=== PATIENT | female | born 1960 | race Caucasian/White ===

== ENCOUNTER 2022-01-05 10:53 | Outpatient (CLI) | payer OTHER, SELFPAY ==
--- OUTSIDE RECORDS SUMMARY | 2022-01-05 11:06 | XMS_ITS ---
:1960 Author Care Team Providers Name Role Phone TONA MOREIRA Referring Provider [phone] Allergies Code Code System Name Reaction Severity Status Onset 693730 RxNorm Mold ? ? Active ? Medications No Medications Reported Problems Name Status Onset Date Source ? Bilateral Tinnitus Active 08/29/2018 ? 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 Degenerative Arthritis of Temporomandibular Joint Active 08/29/2018 ? Myofascial Pain Active 08/29/2018 ? Procedures Date Name Performed by ? ? ENT/Sinus Surgery Information not avai lable ? [place] Yarn Examiner Surgery Information not avai lable ? Tonsillectomy Information not avai lable ? [place] Teeth Extraction Information not available Results Lab Results Date Name Specimen Result Interpretation Description Value Range Status Address ? ? Oral Appliance ? Type of mandibular ? ? [place]: [address]* Appliance stabilization [address] appliance [facility] , [place] Past Encounters None recorded. Social History Tobacco Smoking Status Never Smoker Vaccine List Vaccine Type influenza, seasonal, injectable 12/20/2017 Plan of Care Reminders Provider Appointments None recorded. ? ? Lab None recorded. ? ? Referral None recorded. ? ? Procedures None recorded. ? ? Surgeries None recorded. ? ? Imaging None recorded. ? ? Vitals 10/11/2018 11:00AM FOLLOW UP 30 Height Weight BMI Blood Pressure 5 ft 4 in 148 lbs 25.4 kg/m2 119/71 mm[Hg] 09/06/2018 03:30PM SPLINT INSERT Height 5 ft 4 in 08/22/2018 09:00AM NEW PATIENT 60 Height Weight BMI Blood Pressure 5 ft 4 in 148 lbs 25.4 kg/m2 98/64 mm[Hg]
--- OUTSIDE RECORDS SUMMARY | 2022-01-05 11:06 | XMS_ITS | Clinical Summary ---
:1960 Author Organization [employer] [facility] [place] [address] Care Team Providers Name Role Phone [facility] Primary Care Provider Unavailable Allergies No known active allergies Medications Medication Sig Dispensed Refills Start Date End Date Status IBUPROFEN 200 MG TAB Take 1 to 3 60 0 09/22/2007 Active tablets by mouth every 6 hours as needed for pain fluticasone (50 mcg Inhale 1 [place] 1 Bottle 0 07/08/2015 Active per actuation) nasal into both nostrils solution once daily. (FLONASE)Indications: Chronic cough albuterol HFA Inhale 1-2 Puffs 1 Inhaler 0 07/18/2015 Active (PRO-AIR,VENTOLIN,PROV by mouth every 4 ENTIL) 90 hours if needed mcg/actuation for Shortness Of inhalerIndications: Breath or Cough Wheezing. erythromycin Apply 1 Strip to 3.5 g 0 11/06/2020 Active ophthalmic ointment left eye 3 times 0.5%Indications: daily. Conjunctival abrasion, left, initial encounter Active Problems Problem Noted Date Myopia of both eyes with astigmatism and presbyopia S/P hysterectomy 05/03/2015 Vitamin D deficiency 10/12/2010 Resolved Problems Problem Noted Date Resolved Date Routine adult health maintenance 06/30/2013 014 Overview: Colonoscopy 06/2013 normal repeat in 10 y ears Anemia, unspecified 11/15/2006 05/03/2015 Allergic rhinitis, cause unspecified 06/10/200502/2016 Umbilical hernia without mention of obstruction or gangrene 05/20/2005 05/03/2015 DEPRESSIVE DISORDER, MAJOR RECUR, UNSPECIFIED 10/06/1999 05/03/2015 FATIGUE 10/06/1999 05/03/2015 HEADACHE - NOS 10/06/1999 05/03/2015 Lump or mass in breast 05/03/2015 ANXIETY 05/03/2015 Overview: September 2011: started zoloft. MENORRHAGIA 05/03/2015 Immunizations Name Administration Dates Next Due Influenza, IIV3 (Age >=3 years) 04/01/2012, 08/25/2004, 11/0 06/2002 Influenza, IIV4 12/09/2012 Pneumococcal Poly,23-Valent (Pneumovax) 08/25/2004 Td (Age >=7 Years) 08/25/2004, 09/08/2001 Tdap 11/06/2011 Zoster (Zostavax-ZVL, live) 05/03/2013 Family History Medical History Relation Name Comments Other Father depression Cancer-breast Mother Other Other cataracts, grand parents Relation Name Status Comments Father Mother (Age 62) diagnosed age 59 Other Social History Tobacco Use Types Packs/Day Years Used Date Never Smoker 0 Smokeless Tobacco: Never Used Tobacco Cessation: Counseling Given: Yes Alcohol Use Standard Drinks/Week Comments Yes 4 (1 standard drink = 0.6 oz pure alcoho l) occasional Sex Assigned at Date Recorded Not on file Obstetrics History Para Term AB IAB SAB Ectopic Multiple Living Live Births 4 3 3 0 1 0 1 0 0 3 Date Outcome GA Total Labor/2nd/3rd Weight Sex Delivery Anes PTL Lizet A 1 A5 Name Clin Labor SAB Term Term Term Last Filed Vital Signs Vital Sign Reading Time Taken Comments Blood Pressure 134/85 12/20/2017 9:48 AM CDT Pulse 66 12/20/2017 9:48 AM CDT Temperature 36.7 ??C (98 ??F) 11/26/2015 9:14 AM CDT Respiratory Rate 14 09/22/2007 3:00 PM CDT Oxygen Saturation 98% 07/08/2015 10:29 AM CDT Inhaled Oxygen Concentration - - Weight 64.8 kg (142 lb 14.4 oz) 11/26/2015 9:14 AM CDT Height 160.5 cm (5' 3.19) 07/08/2015 10:29 AM CDT Body Mass Index 25.16 07/08/2015 10:29 AM CDT Plan of Treatment Health Maintenance Due Date Last Done Comments Zoster (shingles) series for age 0406/28/2013 05/03/2013 50+ (2 of 3) Depression screening for age 12+ 05/03/2016 05/03/2015 BMI (ht and wt on same day) for 07/07/2016 07/08/2015, 04/22 age 18+ Mammogram for age 45-75 01/30/2017 01/31/2016, 01/24/2015, 01/15/2014, Additional history exists Lipids for age 45-75 05/03/2020 05/03/2015, 10/17/2010, 08/12/2005, Additional history exists COVID-19 vaccine series (3 - 09/24/2020 07/30/2020, 021 Booster for Pfizer series) Tetanus booster 11/05/2021 11/06/2011, 08/25/2004, 09/08/2001 Influenza for age 50-64 11/20/2021 02/03/2015 (Completed [facility]), 12/09/2012, 04/01/2012, Additional history exists Colonoscopy through age 75 07/01/2023 06/30/2013, 5 Tdap Completed 11/06/2011 Hepatitis C screening for age Completed 05/03/2015 18-79 Results Not on filefrom Last 3 Months Insurance Payer Benefit Plan / Subscriber ID Effective Dates Phone Addre ss Type Group MEDICA MEDICA CHOICE [id number] 2020-[place] [address] [address] [place] [address] Advance Directives Latest Code Status on File Code Status Date Activated Date Inactivated Comments Full Code 09/21/2007 8:02 AM 09/22/2007 11:00 PM Care Teams Sample Paster Relationship Specialty Start Date End Date Rosalind Snider PCP - General 06/19/16
[2022-01-05 22:14] LABS: Chloride* 101 mmol/L (96-114)
[2022-01-05 22:15] LABS: Potassium* 4.4 mmol/L (3.6-5.1); Sodium* 138 mmol/L (135-149)
[2022-01-05 22:17] LABS: Aspartate Amino Transferase* 27 U/L (12-35); Bilirubin Total* 0.6 mg/dL (0.1-1.5); Blood Urea Nitrogen* 16 mg/dL (7-30); Carbon Dioxide* 29 mmol/L (20-32); Cholesterol* 292 mg/dL (90-199); Creatinine* 0.6 mg/dL (0.5-1.5); Estimated Glomerular Filt Rate 103 ml/min; Total Protein* 7.7 g/dL (6.0-8.3)
[2022-01-05 22:18] LABS: Alkaline Phosphatase* 102 U/L (40-150); Glucose* 111 mg/dL (60-115); HDL Cholesterol* 78 mg/dL (>=50); Iron* 134 ug/dL (37-170); LDL Cholesterol Calculated 181 mg/dL (<100); Triglycerides* 167 mg/dL (40-149)
[2022-01-05 22:51] LABS: Alanine Aminotransferase* 24 U/L (4-35)
[2022-01-05 23:03] LABS: Vitamin B12* 496 pg/mL (243-894)
== END 2022-01-05 10:54 | disposition home or self-care (01) ==
PROVIDERS: PCP Physician Assistant Medical; Visit Provider Physician Assistant Medical
DX: Z01.419 Encounter for gynecological examination (general) (routine) without abnormal findings (principal); F41.9 Anxiety disorder, unspecified; R53.83 Other fatigue; Z13.6 Encounter for screening for cardiovascular disorders
CPT/HCPCS: 80053; 80061; 82607; 83540; 84443; 87624; 88175

== ENCOUNTER 2022-01-21 07:57 | Outpatient (CLI) | payer OTHER, SELFPAY ==
--- OUTSIDE RECORDS SUMMARY | 2022-01-21 07:59 | XMS_ITS ---
:1960 Author Care Team Providers Name Role Phone TONA MOREIRA Referring Provider [phone] Allergies Code Code System Name Reaction Severity Status Onset 433723 RxNorm Mold ? ? Active ? Medications No Medications Reported Problems Name Status Onset Date Source ? Bilateral Tinnitus Active 08/29/2018 ? 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 Degenerative Arthritis of Temporomandibular Joint Active 08/29/2018 ? Myofascial Pain Active 08/29/2018 ? Procedures Date Name Performed by ? ? ENT/Sinus Surgery Information not avai lable ? Pre [employer] Teacher Surgery Information not avai lable ? Tonsillectomy Information not avai lable ? [place] Teeth Extraction Information not available Results Lab Results Date Name Specimen Result Interpretation Description Value Range Status Address ? ? Oral Appliance ? Type of mandibular ? ? [place]: [address] Preparation* Appliance stabilization [address] appliance [facility] , [place] Past Encounters None recorded. Social History Tobacco [...]
--- OUTSIDE RECORDS SUMMARY | 2022-01-21 07:59 | XMS_ITS | Clinical Summary ---
:1960 Author Organization [email or web address] [facility] [place] [address] Care Team Providers Name Role Phone [facility] Primary Care Provider Unavailable Allergies No known active allergies Medications Medication Sig Dispensed Refills Start Date End Date Status IBUPROFEN 200 MG TAB Take 1 to 3 60 0 09/22/2007 Active tablets by mouth every 6 hours as needed for pain fluticasone (50 mcg Inhale 1 [place] 1 Bottle 0 07/08/2015 Active per actuation) [...] Overview: September 2011: started zoloft. MENORRHAGIA 05/03/2015 Encounters Date Type Specialty Care Team Description 01/05/2022 Lab Requisition Destinee Allen PA-C from Last 3 Months Immunizations Name Administration Dates Next Due Influenza, IIV3 (Age >=3 years) 04/01/2012, 08/25/2004, 1106/2002 Influenza, IIV4 12/09/2012 Pneumococcal Poly,23-Valent (Pneumovax) 08/25/2004 [...] 50-64 11/20/2021 02/03/2015 (Completed [facility]), 12/09/2012, 04/01/2012, Additional history exists Colonoscopy through age 75 07/01/2023 06/30/2013, 5 Tdap Completed 11/06/2011 Hepatitis C screening for age Completed 05/03/2015 18-79 Procedures Procedure Name Priority Date/Time Associated Diagnosis Comme nts LAB TRACKING EVENT Routine 01/05/2022 11:19 AM CDT HPV THIN PREP Routine 01/05/2022 11:19 AM Results for this CDT procedure are i n the results section. from Last 3 Months Results LAB TRACKING EVENT (01/05/2022 11:19 AM CDT) Specimen Anatomical Collection Method Collection Time Receive d Time (Source) Location / / Volume Laterality Other (Other) Client Collect / 01/05/2022 11:19 2021 7:06 Unknown AM CDT PM CDT Destinee Allen PA-C LAB BILL ONLY Performing Organization Address City/State/ZIP Code Phon e Number [facility] [address] [place] [address] LABORATORY-CENTRAL 2000 LABORATORY HPV HIGH RISK (01/05/2022 11:19 AM CDT) Analysis Performed At Patho logist Time Signature TYPE 16 Negative Negative 01/08/2022 [facility] 11:32 AM CDT LABORATORY-H[facility] TRAL LABORATORY TYPE 18 Negative Negative 01/08/2022 [facility] 11:32 AM CDT LABORATORY-H[facility] TRAL LABORATORY OTHER HIGH Negative Negative 01/08/2022 [facility] RISK TYPES 11:32 AM CDT LABORATORY-HANY TRAL LABORATORY Specimen Anatomical Collection Method Collection Time Receive d Time (Source) Location / / Volume Laterality Other 01/05/2022 11:19 01/06/2022 7:59 (Cervical/Vagina AM CDT AM CDT l) Narrative [facility] LABORATORY-CENTRAL LABORAT ORY - 01/08/2022 11:32 AM CDT HPV types 16, 18, 31, 33, 35, 39, 45, 51, 52, 56, 58, 59, 66 and 68 DNA were undetectable or below the pre-set threshold. Methodology: Alexandr Torin 4800 HPV Test Destinee Allen PA-C MICROBIOLOGY Performing Organization Address City/State/ZIP Code Phon e Number [facility] [employer] [address] [place] [address] LABORATORY-CENTRAL 1999 LABORATORY from Last 3 Months Insurance Payer Benefit Plan / Subscriber ID Effective Dates Phone Addre ss Type Group MEDICA MEDICA CHOICE [id number] 2020-Present [address] [address] [place] [address] Advance Directives Latest Code Status on File Code Status Date Activated Date Inactivated Comments Full Code 09/21/2007 8:02 AM 09/22/2007 11:00 PM Care Teams Nurse Staff Community [facility] Relationship Specialty Start Date End Date Rosalind Snider PCP - General 06/19/16
--- NOTE | 2022-01-21 08:15 | CRLHL7_ITS ---
For Patients: As a result of the Century Cures Act, medical imaging exams and procedure reports are released immediately into your electronic medical record. You may view this report before your referring provider. If you have questions, please contact your health care provider. BILATERAL SCREENING MAMMOGRAM WITH COMPUTER-AIDED DETECTION AND TOMOSYNTHESIS TECHNIQUE: CC and MLO views were obtained. These mammographic images have been obtained using full-field digital technique. These mammographic images were interpreted with the benefit of computer-aided detection. Breast Tomosynthesis was used in this interpretation. COMPARISON FILM: 10/06/18, 10/05/17, 10/01/16. FINDINGS: There are scattered areas of fibroglandular density IMPRESSION: There is no radiographic evidence for malignancy. ASSESSMENT: BI-RADS Category 1: Negative RECOMMENDATION: Routine screening mammogram in 1 year. A lay language report of this examination will be provided to the patient. Leonel Stern M.D. Diagnostic Radiologist [email or web address] Transcribed: 9:47 p.m. KARLA/Dictated by: Leonel Stern MD @ 01/21/2022 8:57:00 AM (Electronically Signed)
== END 2022-01-21 07:58 | disposition home or self-care (01) ==
LOC: MAMMO 07:58
PROVIDERS: PCP Physician Assistant Medical; Visit Provider Physician Assistant Medical
DX: Z12.31 Encounter for screening mammogram for malignant neoplasm of breast (principal)
CPT/HCPCS: 77063; 77067

== ENCOUNTER 2022-05-11 11:01 | Outpatient (CLI) | payer OTHER, SELFPAY ==
[2022-05-11 22:35] LABS: Albumin* 4.6 g/dL (3.3-5.0)
[2022-05-11 22:38] LABS: Aspartate Amino Transferase* 30 U/L (12-35); Bilirubin Direct* 0.3 mg/dL (0.0-0.5); Bilirubin Total* 0.7 mg/dL (0.1-1.5); Cholesterol* 194 mg/dL (90-199); HDL Cholesterol* 95 mg/dL (>=50); LDL Cholesterol Calculated 80 mg/dL (<100); Total Protein* 7.2 g/dL (6.0-8.3); Triglycerides* 97 mg/dL (40-149)
[2022-05-11 22:39] LABS: Alanine Aminotransferase* 32 U/L (4-35); Alkaline Phosphatase* 77 U/L (40-150)
== END 2022-05-11 11:02 | disposition home or self-care (01) ==
LOC: LKVREF 11:02
PROVIDERS: PCP Physician Assistant Medical; Visit Provider Physician Assistant Medical
DX: E78.5 Hyperlipidemia, unspecified (principal)
CPT/HCPCS: 80061; 80076

== ENCOUNTER 2022-09-17 09:44 | Outpatient (CLI) | payer OTHER, SELFPAY | END 2022-09-17 09:45 | disposition home or self-care (01) | PROVIDERS: PCP Physician Assistant Medical; Visit Provider Physician Assistant Medical | DX: R45.1 Restlessness and agitation (principal); E78.5 Hyperlipidemia, unspecified; E55.9 Vitamin D deficiency, unspecified; R53.83 Other fatigue | CPT/HCPCS: 82728 ==

== ENCOUNTER 2022-09-28 09:59 | Outpatient (CLI) | payer OTHER, SELFPAY ==
--- NOTE | 2022-09-28 10:15 | CRLHL7_ITS ---
For Patients: As a result of the Century Cures Act, medical imaging exams and procedure reports are released immediately into your electronic medical record. You may view this report before your referring provider. If you have questions, please contact your health care provider. INDICATION: Headaches. TECHNIQUE: Multiplanar multisequence MR imaging acquired through the brain and internal auditory canals prior to and following intravenous contrast. COMPARISON: None. FINDINGS: Prominence of the ventricles and sulci compatible with minimal diffuse cerebral volume loss. No mass effect or midline shift. Minimal FLAIR hyperintensities in the supratentorial white matter, typical for chronic microvascular ischemic changes. No recent intracranial hemorrhage or pathologic extra-axial fluid collection. No diffusion restriction to suggest acute infarction. No pathologic intracranial enhancement. No mass or pathologic enhancement within the internal auditory canals or cerebellopontine angles. No concerning signal abnormalities in the inner ear structures. No vascular loop within the internal to canals. Moderately advanced left greater than right temporomandibular joint degenerative changes. The major arterial flow voids of the skullbase are preserved. The globes are symmetric. Mild right sphenoid sinus mucosal thickening. The mastoid air cells are clear. IMPRESSION: 1. No acute intracranial abnormality. 2. No mass or pathologic enhancement within the internal auditory canals or cerebellopontine angles. 3. Minimal chronic microvascular ischemic changes and diffuse cerebral volume loss. Dictated by Alexandre Springer MD @ 09/28/2022 12:08:04 PM (Electronically Signed)
== END 2022-09-28 10:00 | disposition home or self-care (01) ==
LOC: MRI 09:59
PROVIDERS: PCP Physician Assistant Medical; Visit Provider Physician Assistant Medical
DX: R51.9 Headache, unspecified (principal); I67.82 Cerebral ischemia
CPT/HCPCS: 70553; A9575

== ENCOUNTER 2022-12-16 14:38 | Outpatient (CLI) | payer OTHER, SELFPAY | END 2022-12-16 14:39 | disposition home or self-care (01) | PROVIDERS: PCP Physician Assistant Medical; Visit Provider Otolaryngology | DX: H93.19 Tinnitus, unspecified ear (principal); E78.5 Hyperlipidemia, unspecified; E55.9 Vitamin D deficiency, unspecified; R53.83 Other fatigue | CPT/HCPCS: 84443; 86039; 86431; 86618 ==

== ENCOUNTER 2023-01-27 07:35 | Outpatient (CLI) | payer OTHER, SELFPAY ==
--- NOTE | 2023-01-27 07:45 | CRLHL7_ITS ---
For Patients: As a result of the Century Cures Act, medical imaging exams and procedure reports are released immediately into your electronic medical record. You may view this report before your referring provider. If you have questions, please contact your health care provider. BILATERAL SCREENING MAMMOGRAM WITH COMPUTER-AIDED DETECTION AND TOMOSYNTHESIS TECHNIQUE: CC and MLO views were obtained. These mammographic images have been obtained using full-field digital technique. These mammographic images were interpreted with the benefit of computer-aided detection. Breast Tomosynthesis was used in this interpretation. COMPARISON FILM: 01/16/22, 04/23/20, 08/30/19. FINDINGS: There are scattered areas of fibroglandular density IMPRESSION: There is no radiographic evidence for malignancy. ASSESSMENT: BI-RADS Category 1: Negative RECOMMENDATION: Routine screening mammogram in 1 year. A lay language report of this examination will be provided to the patient. Leonel Stern M.D. Diagnostic Radiologist [email or web address] KARLA/Dictated by: Leonel Stern MD @ 01/27/2023 11:38:00 AM (Electronically Signed)
== END 2023-01-27 07:36 | disposition home or self-care (01) ==
LOC: MAMMO 07:36
PROVIDERS: PCP Physician Assistant Medical; Visit Provider Physician Assistant Medical
DX: Z12.31 Encounter for screening mammogram for malignant neoplasm of breast (principal)
CPT/HCPCS: 77063; 77067

== ENCOUNTER 2023-12-23 13:22 | Outpatient (CLI) | payer BC, SELFPAY ==
--- OUTSIDE RECORDS SUMMARY | 2023-12-23 13:24 | XMS_ITS | Clinical Summary ---
Author Organization [employer] [facility] Address [place], [place] [address] Care Team Providers Care Shell Press Operator Name Role Phone [facility] Primary Care Provider Unavailabl e Allergies No known active allergies Medications Medication Sig Dispensed Refills Start Date End Date Status IBUPROFEN 200 MG TAB Take 1 to 3 tablets by mouth every 6 hours as needed for pain 60 0 09/22/2007 Active fluticasone (50 mcg per actuation) nasal solution (FLONASE)Indications :Chronic cough Inhale 1 [place] into both nostrils once daily. 1 Bottle 0 07/08/2015 Active albuterol HFA (PRO-AIR,VENTOLIN,OR OVENTIL) 90 mcg/actuation inhalerIndications:C ough Inhale 1-2 Puffs by mouth every 4 hours if needed for Shortness Of Breath or Wheezing. 1 Inhaler 0 07/18/2015 Active Active Problems Problem Noted Date Diagnosed Date Myopia of both eyes with astigmatism and presbyo raymond 12/20/2017 S/P hysterectomy 05/03/2015 Vitamin D deficiency 10/12/2010 Resolved Problems Problem Noted Date Diagnosed Date Resolved Date Routine adult health maintenance 06/30/2013 01/26/2014 Overview (06/30/2013): Colonoscopy 06/2013 normal repeat in 10 years Anemia, unspecified 11/15/2006 05/03/19 16 Allergic rhinitis, cause unspecified 06/10/2005 05/03/2015 Umbilical hernia without men tion of obstruction or gangrene 05/20/2005 05/03/2015 DEPRESSIVE DISORDER, MAJOR RECUR, UNSPECIFIED 10/06/19 00 05/03/2015 FATIGUE 10/06/1999 05/03/2015 HEADACHE - NOS 10/06/1999 05/03/2015 Lump or mass in breast 05/03 ANXIETY 05/03/2015 Overview (10/05/2011): September 2011: started zoloft. MENORRHAGIA 05/03/2015 Immunizations Name Administration Dates Next Due Influenza, IIV3 (Age >=3 years) 04/01/2012,08/25,01/23/2003 Influenza, IIV4 12/09/2012 Pneumococcal Poly,23-Valent (Pneumovax) 08/26/19 05 Td (Age >=7 Years) 08/25/2004,09/08/2001 Tdap 11/06/2011 Zoster (Zostavax-ZVL, live) 05/03/2013 Family History Medical History Relation Name Comments Other Father depression Cancer-breast Mother Other Other cataracts, gran dparents Relation Name Status Comments Father Mother (Age 62) diagnosed age 59 Other Social History Tobacco Use Types Packs/Day Years Used Date Smoking Tobacco: Never Smokeless Tobacco: Never Tobacco Cessation:Counseling Given: Yes Alcohol Use Standard Drinks/Week Comments Yes 4 (1 standard drink = 0.6 oz pur e alcohol) occasional Sex and Gender Information Value Date Recorded Sex Assigned at Not on file Gender Identity Not on file Sexual Orientation Not on file Obstetrics History Para Term AB IAB SAB Ectopic Multiple Livin g Live Births 4 3 3 0 1 0 1 0 0 3 Date Outcome GA Total Labor Labor/2nd/3rd Weight Sex Type Anes PTL Lizet A1 A5 Name Clin SAB Term Term Term Last Filed Vital Signs Vital Sign Reading Time Taken Comments Blood Pressure 134/85 12/20/2017 9:48 AM CDT Pulse 66 12/20/2017 9:48 AM CDT Temperature 36.7 ??C (98 ??F) 11/26/2015 9:14 AM CDT Respiratory Rate 14 09/22/2007 3:00 PM CDT Oxygen Saturation 98% 07/08/2015 10: 29 AM CDT Inhaled Oxygen Concentration - - Weight 64.8 kg (142 lb 14.4 oz) 11/26/2015 9:14 AM CDT Height 160.5 cm (5' 3.19) 07/08/2015 1 0:29 AM CDT Body Mass Index 25.16 07/08/2015 10:29 AM CDT Plan of Treatment Health Maintenance Due Date Last Done Comments HIV for age 15-65 1976 Zoster (shingles) series for age 50+ (2 of 3) 06/28/2013 05/03/2013 Depression screening for age 12+ 05/03/2016 05/03/2015 BMI (ht and wt on same day) for age 18+ 07/07/2016 07/08/2015, 05/03/2015 Mammogram for age 45-75 01/30/2017 01/31/20 16, 01/24/2015, 01/15/2014, Additional history exists Lipids for age 45-75 05/03/2020 05/03/2015, 10/17/2010, 08/12/2005, Additional history exists Tetanus booster 11/05/2021 11/06/2011, 08/2004, 09/08/2001 Colonoscopy through age 75 07/01/2023 06/30/2013, COVID-19 vaccine series ( season) 2023 07/30/2020, 07/09/2020 Influenza for age 50-64 11/21/2023 02/04/20 15 ([facility] 12/09/2012, 04/01/2012, Additional history exists Pneumococcal series for age 6-64 Aged Out 08/25/2004 No longer eligible based on patient's age to complete this topic Tdap Completed 11/06/2011 Hepatitis C screening for age 18-79 Completed 05/03/2015 Procedures Procedure Name Priority Date/Time Associated Diagnosis Comments SCAN-MAMMOGRAPHY REPORT 01/31/2016 12:00 AM BEVEL POLISHER ANTI HCV Routine 05/03/2015 2:05 PM BEVEL POLISHER Need for hepatitis C screening test LIPID PANEL W REFLEX MEASURED LDL Routine 05/03/2015 2:05 PM BEVEL POLISHER Screening cholesterol level COLONOSCOPY SCREENING Routine 08/25/2004 10:39 AM CDT from Last 3 Months or Most Recently Relevant to Health Maintenance Results * SCAN-MAMMOGRAPHY REPORT (01/31/2016 12:00 AM BEVEL POLISHER) Anatomical Region Laterality Modality Other Scanner OTHER * (ABNORMAL) LIPID PANEL W REFLEX MEASURED LDL (05/03/2015 2:05 PM BEVEL POLISHER) CHOLESTEROL,TOTAL 224(H) 100 - 199 mg/dL 05/03/2015 7:30 PM BEVEL POLISHER [facility] TRIGLYCERIDES 150(H) <150 mg/dL 05/03/2015 7:30 PM BEVEL POLISHER [facility] HDL CHOLESTEROL 73 >40 mg/dL 05/03/2015 7:30 PM BEVEL POLISHER [facility] NON-HDL CHOLESTEROL 151(H) <145 mg/dl 05/03/2015 7:30 PM BEVEL POLISHER [facility] CHOL/HDL RATIO 3.07 <4.50 05/03/2015 7:30 PM BEVEL POLISHER [facility] LDL CHOLESTEROL 121 <=130 mg/dL 05/03/2015 7:30 PM BEVEL POLISHER [facility] PATIENT STATUS FASTING 05/03/2015 7:30 PM BEVEL POLISHER [facility] Blood specimen (specimen) BLOOD SPECIMEN / Unknown Venipuncture / Unknown 05/03/2015 2:05 PM BEVEL POLISHER 05/03/2015 2:05 PM BEVEL POLISHER Camelia Muñoz MD CHEMISTRY [facility] [address] [place] [address], [place] * ANTI HCV [85209.2] (05/03/2015 2:05 PM BEVEL POLISHER) HEPATITIS C ANTIBODY Non-Reacti ve Non-Reacti ve 05/03/2015 7:49 PM BEVEL POLISHER [facility] Blood specimen (specimen) BLOOD SPECIMEN / Unknown Venipuncture / Unknown 05/03/2015 2:05 PM BEVEL POLISHER 05/03/2015 2:05 PM BEVEL POLISHER Narrative [facility] - 05/03/2015 7:49 PM BEVEL POLISHER Antibodies to HCV not detected; does not exclude the possibility of exposure to HCV. Camelia Muñoz MD SEND [facility]S [facility] [address] [place] [address], * COLONOSCOPY SCREENING (08/25/2004 10:39 AM CDT) COLONOSCOPY Not Applicable 08/25/2004 10:3 9 AM CDT Narrative 08/25/2004 7:43 PM CDT Ordered by an unspecified provider. Other Clinical Staff GI PROCEDURE ORD from Last 3 Months or Most Recently Relevant to Health Maintenance Advance Directives * Full Code (Latest Code Status on File) Date Activated Date Inactivated Comments 09/21/2007 8:02 AM 09/22/2007 11:00 PM Care Teams Shell Press Operator Relationship Specialty Start Date End Date Rosalind Snider PCP - General 06/19/16
== END 2023-12-23 13:23 | disposition home or self-care (01) ==
PROVIDERS: PCP Physician Assistant Medical; Visit Provider Physician Assistant Medical
DX: Z00.00 Encounter for general adult medical examination without abnormal findings (principal); E78.5 Hyperlipidemia, unspecified; E55.9 Vitamin D deficiency, unspecified; F41.9 Anxiety disorder, unspecified; R31.9 Hematuria, unspecified; Z13.0 Encounter for screening for diseases of the blood and blood-forming organs and certain disorders involving the immune mechanism; Z13.6 Encounter for screening for cardiovascular disorders; Z13.1 Encounter for screening for diabetes mellitus; Z11.59 Encounter for screening for other viral diseases
CPT/HCPCS: 80053; 80061; 82306; 84443; 86703; 86803; 87086

== ENCOUNTER 2024-01-20 06:53 | Outpatient (CLI) | payer BC, SELFPAY ==
--- OUTSIDE RECORDS SUMMARY | 2024-01-20 06:56 | XMS_ITS | Data Portability ---
Author Organization [place] [facility] [place] [facility] Address [address] [address] Care Team Providers Care Hotel Recreational Facilities Manager Name Role Phone TONA MOREIRA Referring Provider [phone] Assessment Encounter Date Assessment Date Assessment LastModified by Organization Details LastModified Time 08/22/2018 08/22/2018 Today I spent a considerable amount of time discussing the patients past medical and personal history, as well as performing a physical examination all of which is documented in it's entirety in the electronic health record. I reviewed the pathophysiology of the disorder, potential contributing and risk factors as well as treatment options to address their complaints. Today panoramic imaging was reviewed which was obtained from her dentist. In this radiograph the mandibular condyles were partially visualized, the right condyle appears flattened and irregular suggestive of DJD, the left condyle shows signs of remodelling. There was no other suggestion of osseous or odontogenic abnormalities. This will be discussed with patient in insert. From a treatment perspective I've recommended self management treatment approach. Treatment begins with home self management designed to rest the muscles of mastication and reduce inflammation in the temporomandibular joints. This includes heat and ice compresses, eating a soft food or pain-free diet, bilateral chewing identifying and decreasing daytime muscle tension and modification of their sleep position. Beyond self management I do believe that they would benefit from a mandibular intraoral appliance. Her physical examination is coming up in October, she will discuss tinnitus at the time with ehr PCP. The goal of treatment is to restore function and reduce pain. I do believe that by following these treatment recommendations there is a good prognosis for reduction of symptoms. Today greater than 50% of the 55 minute visit was spent counseling and coordinating care. This may have included a review of the diagnosis, contributing factors, diagnostic imaging, home self-management strategies and the limitations and expectations. Not available 08/29/2018 10:25:57 09/06/2018 09/06/2018 Patient was seen today for follow-up and insertion of a mandibular stabilization intraoral appliance. Diagnosis and contributing factors were reviewed. Questions were answered. Self-management and home exercise techniques were reviewed. Today the intraoral appliance was fit to patient comfort. Specifically, adjustments were made to balance appliance occlusion. Instructions on proper use and care were discussed/reviewed both written and verbally. I suggested that (s)he uses the appliance as a retraining tool to aid in relaxing their jaw muscles - put it in 20-30 minutes before bed time, keeping their jaw in a relaxed balanced position, simultaneously applying a heat compress on the jaw. Potential side effects were reviewed. The patient was advised to discontinue oral appliance use should they experience untoward side effects or be unable to return for follow-up care. The patient was advised to return in 3-4 weeks to reassess their progress and continue their treatment plan as previously outlined. In addition to oral appliance insertion today we review home self-care strategies as previously discussed. Today greater than 50% of the 25 minute visit was spent counseling and coordinating care. This may have included a review of the diagnosis, contributing factors, home self-management strategies and the limitations and expectations. Not available 09/13/2018 08:35:20 10/11/2018 10/11/2018 Today I reviewed the diagnosis, contributing factors and treatment options. I reviewed and reinforced continued use of self care and home exercises. I've encouraged daily home care use which may consist of heat and ice compresses, oral habit reduction and relaxation techniques. The intraoral appliance was adjusted to patient comfort. Specifically, adjustments were made to the lower anterior. I've suggested that (s)he return for follow-up care in 2-3 months. Today greater than 50% of the 20 minute visit was spent counseling and coordinating care. This may have included a review of the diagnosis, contributing factors, home self-management strategies and the limitations and expectations. [email or web address] Not available 10/11/2018 12:07:36 Plan of Treatment Reminders Order Date Submit Date Provider Last Modified By Organization Details Last Modified Time Details Appointments None record ed. Lab None record ed. Referral None record ed. Procedures None record ed. Surgeries None record ed. Imaging None record ed. Medication Orders None record ed. Patient TargetsNo targets recorded. Patient Instructions Encounter Date Encounter Id Patient Instructions Last Modified By Organization Details Last Modified Time 08/22/2018 [id number] Self Care for TMD Not availab le 08/29/2018 10:25:44 oral appliance preparation* Not available 08/29/2018 10:25:43 Reason for Referral None Reported. Results Created Date Observation Date Name Description Value Unit Range Abnormal Flag Note LastModifiedBy Organization Detail LastModifiedTime 08/29/2018 oral appli ance prepa ratio n* Type of appliance mandib ular stabil izatio n applia nce Not Available [facility] [address], [place], [address], 08/22/2018 10:00:24 08/23/19 19 XR, ortho panto gram No observ ation record ed. Not Available 08/22 10:34:24 Result Notes None recorded. 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 9 12:08:53 Bilatera l tinnitus 53388896158 02 Active 2018 MEGGAN DUMONT BDS, [place] [address] [facility] [address], [place], [address], [facility] 9 10:25:45 Myofasci al pain 406114947 Active 2018 MEGGAN DUMONT BDS, [place] [address] [facility] [address], [place], [address], [facility] 9 10:25:47 Problem Notes None recorded. Procedures Surgical History Date Name Laterality Status Provider Name and Address Organization Details Recorded Time 09/07/19 19 [facility] 09/06/2018 16:43:32 [place] [facility]eth [facility] 08/22/2018 10:02:46 [facility] 08/22/2018 10:02:46 Quality Management Nurse [facility] 08/22/2018 10:02:46 ENT/Sinus Surgery completed [facility] 08/22/2018 10:02:46 Imaging Results Imaging Date Name Status LastModified by Organization Details LastModified Time 08/22/2018 XR, orthopantogram completed Inform ation not available 08/22/2018 10:34:24 Procedure Notes None recorded. Medical Equipment None Reported. Allergies Allergen ID Allergen Name Allergen Category Reaction Reaction Severity Criticality Documentation Date Start Date Code Code System Note Provider Name and Address Organization Details Recorded Time 55610 mold extract environme nt Not available Not available Not available 08/22/2018 95582 8 RxNorm Bob Hernández [facility] 9 10:02:07 Medications Not known to be on any medication Vitals Date Recorded Body height Body mass index (BMI) Body weight Heart rate Systolic blood pressure Diastolic blood pressure Provider Name and Address Organization Details Last Updated DateTime 9 162.56 cm 25.4 kg/m2 98036.6 7 g 72 /min 98 mm[Hg] 64 mm[Hg] Bob Hernández [facility] 9 10:03:27 Date Recorded Body height Provider Name an d Address Organization Details Last Updated DateTime 09/06/2018 162.[address]án[address] [facility] 09/06/2018 16:41:27 Date Recorded Body height Body mass index (BMI) Body weight Heart rate Systolic blood pressure Diastolic blood pressure Provider Name and Address Organization Details Last Updated DateTime 9 162.56 cm 25.4 kg/m2 50238.6 7 g 58 /min 119 mm[Hg] 71 mm[Hg] Manuel Reidrenee [facility] 9 11:35:06 Social History Question Answer Notes LastModified by Organizat ion Details LastModified Time Tobacco Smoking Status Never Smoker JACKSON Pedro[facility] - [facility] 08/22/2018 10:02:40 What Is Your Level Of Alcohol Consumption? Occasional Information not available 08/22/2018 Auto Related Injury? No Information not available 08/22/2018 What Is Your Level Of Caffeine Consumption? Moderate Information not available 08/22/2018 Are You Currently Employed? Yes Information not available 08/22/2018 Currently No Information not available 08/22/2018 What Type Of Diet Are You Following? REGULAR Information not available 08/22/2018 Do You Reside In Or Have You Traveled To An Area Where Ebola Virus Transmission Is Active? 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 (0=does Not Interfere, 10= Completely Interferes) 6 Information not available 08/22/2018 What Number Best Describes How, During The Past Week, Pain Has Interfered With Your General Activity? (0=does Not Interfere, 10=completely Interferes) 56 Information not available 08/22/2018 What Was The Date Of Your Most Recent Tobacco Screening? 10/11/2018 Information not available 10/13/2018 How Many Children Do You Have? 3 Information not available 08/22/2018 General Stress Level Low [email or web address] Information not available 10/11/2018 Do You Use Any Illicit Or Recreational Drugs? No Information not available 08/22/2018 Work Related Injury? No Information not available 08/22/2018 Sex: Unknown Functional Status Question Answer Note LastModified by Organization D etails LastModified Time What is your exercise level? Moderate Information not available 08/22/2018 Mental Status None recorded. Family History Relationship Description Onset Age of this Age Resolved Age Notes LastModified by Organization Details LastModified Time Father Depressive disorder Not available 08/22 10:02:14 Medical History Condition Response Coronary Artery Disease N Other N Gout N MRSA N Head Trauma/Injury N Lung Disease N Glaucoma N Depression N COPD N Pneumonia N Pacemaker N Obstructive Sleep Apnea N Anxiety Disorder N Muscle, Joint, or Bone Problems N Autoimmune disease N Vision or Eye Problems N Arthritis N Acid Reflux (GERD) N Cancer N Stroke N Back Injury N High Cholesterol N Liver Disease N Organ Transplant N Rheumatoid Arthritis N Headaches N Fibromyalgia N Kidney Disease N Allergies/Hayfever N Post traumatic stress disorder (PTSD) N Parkinson's Disease N Migraines N Brain Tumors N Anemia N Multiple Sclerosis N Heart Attack (NM) N Stomach Ulcers N Diabetes N Bleeding Disorder N Seizures/Epilepsy N Tuberculosis N AIDS/HIV N Dementia N Asthma N Substance Abuse N Vertigo N Sleep Disorder N Hepatitis N Neuropathy N Heart Disease N Pulmonary Embolism N Hypertension N Osteoporosis N Gynecological HistoryNo gynecological history recorded. Obstetrics History GPAL:G 0 P 0 0 0 0 Immunizations Vaccine Type Date Status Provider Name and Address Organization Details Recorded Time Influenza, split virus, trivalent, preservative 12/20/2017 completed JACKSON Pedroza [facility] 08/22/2018 10:02:53 Past Encounters Encounter ID Performer Location Encounter Start Date Encounter Closed Date Diagnosis/Indication Diagnosis SNOMED-CT Code Diagnosis ICD10 Code [id number] PALOMA DUMONT [place]DS, [place] Jose rowell [address] JACK[place] QUEZADA [id number] 08/22/2018 09:33:19 08/22/2018 11:25:23 Articular disc disorder of temporomandibular joint 27362097 M26.633 Myofascial pain 70661491 9 M79.11 Bilateral tinnitus 88857 88215 102 H93.13 Degenerati ve arthritis of temporomandibular joint 068100226 M13.88 [id number] PALOMA DUMONT BDS, [place] Jose rowell [address] JOSE RowellJACKSON [id number] 09/06/2018 16:09:35 09/06/2018 17:03:26 Degenerative arthritis of temporomandibular joint 215380477 M13.88 Myofascial pain 81383024 9 M79.11 Bilateral tinnitus 53533 04775 102 H93.13 Articular disc disorder of temporomandibular joint 12660607 M26.633 [id number] Cheri Quezada [address] JOSE RowellJACKSON [id number] 10/11/2018 11:29:01 10/11/2018 12:05:07 Articular disc disorder of temporomandibular joint 92274449 M26.632 Bilateral tinnitus 50622 94360 102 H93.13 Myofascial pain 58223810 9 M79.11 Degenerati ve arthritis of temporomandibular joint 809400420 M13.88 Health Concerns Section Related Observation LastModified by Organization Detai ls LastModified Time None Recorded Concern Status LastModified by Organization Details LastModified Time None Recorded Advance Directives Directive None Recorded Payers Encounter Date Sequence Insurance Name Policy Number Policy Bateman Covered Member ID Bateman Member ID Guarantor Name 08/22/2018 1 [employer] [id number] Fredi Blanco [id number] Sharri Blanco 09/06/2018 1 [employer] [id number] Fredi Blanco [id number] Sharri Blanco 10/11/2018 1 [employer] [id number] Fredi Blanco [id number] hSarri Blanco Notes Date Note Type Note Provider Name and Address Organization Details Recorded Time 9 text/html HPI Notes: general HPI for jaw, face, TMD pain Reported by patient. Onset: started 30+ year(s) ago; clicking since she was young-now pain, for 6 months Location: right; preauricular Quality: dull; aching Severity: pain level 7/10 Duration intermittent weekly Symptom triggers: chews hard/crunchy/chewy foods; talking, she feels the joint rubbing Aggravating Factors: yawning; wide mouth opening Alleviating Factors: acetaminophen Associated Symptoms: jaw clicking right; headaches Prior Tests: panorex; June 2018 Prior opinion dentist Patient presents today for evaluation of a possible temporomandibular disorder. These symptoms are chronic and began with no clear triggering events. Previous consultation include evaluation with his/her dentist. Symptoms are right sided only and aggravated by jaw use and function. The patient is aware of teeth clenching and grinding at night. The right jaw joint noises are present since she was little. In last 6 months she has noticed jaw pain. The noise has changed from clicking to rubbing now. This is aggravated by eating and talking. At times she has noticed ringing in her earsl. Ringing is constant. She has not discussed this with PCP or ENT. Pain with chewing chewy and crunchy foods. Headaches two- three times a week. Jaw pain more on lateral movements. MEGGAN DUMONT BDS, [place] [address] [facility] [address], [place], [address], [facility] 08/29/2018 10:26:41 9 text/html HPI Notes: general HPI for jaw, face, TMD pain Reported by patient. Onset: started 30+ year(s) ago; clicking since she was young-now pain, for 6 months Location: right; preauricular Quality: dull; aching Severity: pain level 3/10 Duration intermittent weekly Symptom triggers: chews hard/crunchy/chewy foods; talking, she feels the joint rubbing Aggravating Factors: yawning; wide mouth opening Alleviating Factors: acetaminophen Associated Symptoms: jaw clicking right; headaches Prior Tests: panorex; June 2018 Prior opinion dentist Patient presents today for insertion of a mandibular stabilization oral appliance. They note improved symptoms which along with prior data was reviewed, updated and documented in the patient history of present illness. (S)he describes compliance with home self care as previously recommended. She has tried icing the TMJs. She is noticing noise with playing violin. MEGGAN DUMONT BDS, [place] [address] [facility] [address], [place], [address], [place] [facility] 09/13/2018 08:35:58 9 text/html HPI Notes: general HPI for jaw, face, TMD pain Reported by patient. Onset: started 30+ year(s) ago; clicking since she was young-now pain, for 6 months Location: right; preauricular Quality: dull; aching Severity: pain level 3/10 Duration intermittent weekly Symptom triggers: chews hard/crunchy/chewy foods; talking, she feels the joint rubbing Aggravating Factors: yawning; wide mouth opening Alleviating Factors: acetaminophen Associated Symptoms: jaw clicking right; headaches Prior Tests: panorex; June 2018 Prior opinion dentist Patient presents today for follow-up. They report jaw symptoms which are unchanged since the previous visit. Symptoms and pertinent information along with prior data was reviewed, updated and documented in the patient history of present illness. Patient rates the pain intensity as 0 on a scale of 0 to 10. Patient is engaged in active treatment at this time. Sharri reports that she has not been wearing her splint because it is too tight on her anterior teeth. She has been using ice on her jaw every other day or so. She does not feel pain throughout the day. It's the noises in her jaw that bother her. Cheri alejandro, [facility] 10/11/2018 12:09:34 OBGyn Episode No OBEpisode recorded.
--- OUTSIDE RECORDS SUMMARY | 2024-01-20 06:56 | XMS_ITS | Clinical Summary ---
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 1 Bottle 0 07/08/2015 Active albuterol HFA (PRO-AIR,VENTOLIN,LA OVENTIL) 90 mcg/actuation inhalerIndications:C ough Inhale 1-2 [...] 50-64 11/21/2023 02/04/20 15 ([facility]), 12/09/2012, 04/01/2012, Additional history exists Pneumococcal series for age 6-64 Aged Out 08/25/2004 No longer eligible based on patient's age to complete this topic Tdap Completed 11/06/2011 Hepatitis C screening for age 18-79 Completed 05/03/2015 Procedures Procedure Name Priority Date/Time Associated Diagnosis Comments SCAN-MAMMOGRAPHY REPORT 01/31/2016 12:00 AM 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 ANTI HCV Routine 05/03/2015 2:05 PM 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 Need for hepatitis C screening test LIPID PANEL W REFLEX MEASURED LDL Routine 05/03/2015 2:05 PM 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 Screening cholesterol level COLONOSCOPY SCREENING Routine 08/25/2004 10:39 AM CDT from Last 3 Months or Most Recently Relevant to Health Maintenance Results * SCAN-MAMMOGRAPHY REPORT (01/31/2016 12:00 AM 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) Anatomical Region Laterality Modality Other Scanner OTHER * (ABNORMAL) LIPID PANEL W REFLEX MEASURED LDL (05/03/2015 2:05 PM 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) CHOLESTEROL,TOTAL 224(H) 100 - 199 mg/dL 05/03/2015 7:30 PM 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 TRIGLYCERIDES 150(H) <150 mg/dL 05/03/2015 7:30 PM 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 HDL CHOLESTEROL 73 >40 mg/dL 05/03/2015 7:30 PM 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 NON-HDL CHOLESTEROL 151(H) <145 mg/dl 05/03/2015 7:30 PM 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 [facility] CHOL/HDL RATIO 3.07 <4.50 05/03/2015 7:30 PM 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 LDL CHOLESTEROL 121 <=130 mg/dL 05/03/2015 7:30 PM 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 PATIENT STATUS FASTING 05/03/2015 7:30 PM 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 Blood specimen (specimen) BLOOD SPECIMEN / Unknown Venipuncture / Unknown 05/03/2015 2:05 PM 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 05/03/2015 2:05 PM 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 Camelia Muñoz MD CHEMISTRY [facility] [address] [place] [address], [place] * ANTI HCV [28945.2] (05/03/2015 2:05 PM 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) HEPATITIS C ANTIBODY Non-Reacti ve Non-Reacti ve 05/03/2015 7:49 PM 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 Blood specimen (specimen) BLOOD SPECIMEN / Unknown Venipuncture / Unknown 05/03/2015 2:05 PM 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 05/03/2015 2:05 PM 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 Narrative [facility] - 05/03/2015 7:49 PM 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 Antibodies to HCV not detected; does not exclude the possibility of exposure to HCV. Camelia Muñoz MD SEND OUTS [facility] [address] [place] [address], * COLONOSCOPY SCREENING (08/25/2004 10:39 AM CDT) [...] 8:02 AM 09/22/2007 11:00 PM Care Teams Rebar Fabricator Relationship Specialty Start Date End Date Rosalind Snider PCP - General 06/19/16
--- NOTE | 2024-01-20 08:43 | W.ANESCHARGE ---
Anesthesia Charges Start Date/Time Anesthesia Start Date: 01/20/24 Anesthesia Start Time: 08:04 Stop Date/Time Anesthesia Stop Date: 01/20/24 Anesthesia Stop Time: 08:36
== END 2024-01-20 06:54 | disposition home or self-care (01) ==
LOC: OP CLINIC 06:55
PROVIDERS: PCP Physician Assistant Medical; Visit Provider Surgery
DX: Z12.11 Encounter for screening for malignant neoplasm of colon (principal); D12.2 Benign neoplasm of ascending colon; D12.3 Benign neoplasm of transverse colon; K64.4 Residual hemorrhoidal skin tags; Z83.719 Family history of colon polyps, unspecified
CPT/HCPCS: 00811; 45385; 88305; J2704

== ENCOUNTER 2024-02-08 12:56 | Outpatient (CLI) | payer BC, SELFPAY ==
--- OUTSIDE RECORDS SUMMARY | 2024-02-08 12:59 | XMS_ITS | Clinical Summary ---
Author Organization [facility] Address [place], [place] [address] Care Team Providers Care Muffler Tender Name Role Phone [facility] [place] Provider Unavailabl e Allergies No known active allergies Medications Medication Sig Dispensed Refills Start Date End Date Status IBUPROFEN 200 MG TAB Take 1 to 3 tablets by mouth every 6 hours as needed for pain 60 0 09/22/2007 Active fluticasone (50 mcg per actuation) nasal solution (FLONASE)Indications :Chronic cough Inhale 1 Sabael into both nostrils once daily. 1 Bottle 0 07/08/2015 Active albuterol HFA (PRO-AIR,VENTOLIN,CA OVENTIL) 90 mcg/actuation inhalerIndications:C ough Inhale 1-2 [...] (10/05/2011): September 2011: started zoloft. MENORRHAGIA 05/03/2015 Encounters Date Type Department Care Team Description 01/21/2024 Lab Requisition [facility] [phone] George Reid MD from Last 3 Months Immunizations Name Administration [...] 66 12/20/2017 9:48 AM CDT Temperature 36.7 C (98 F) 11/26/2015 9:14 AM CDT Respiratory Rate 14 [...] 50-64 11/21/2023 02/04/20 15 (Completed outside of [facility]), 12/09/2012, 04/01/2012, Additional history exists Pneumococcal series for age 6-64 Aged Out 08/25/2004 No longer eligible based on patient's age to complete this topic Tdap Completed 11/06/2011 Hepatitis C screening for age 18-79 Completed 05/03/2015 Procedures Procedure Name Priority Date/Time Associated Diagnosis Comments LAB TRACKING EVENT Routine 01/20/2024 8: 19 AM CDT PATH TISSUE EXAM Routine 01/20/2024 8:19 AM CDT SCAN-MAMMOGRAPHY REPORT 01/31/2016 12:00 AM CAR UNLOADER HELPER ANTI HCV Routine 05/03/2015 2:05 PM CAR UNLOADER HELPER Need for hepatitis C screening test LIPID PANEL W REFLEX MEASURED LDL Routine 05/03/2015 2:05 PM CAR UNLOADER HELPER Screening cholesterol level COLONOSCOPY SCREENING Routine 08/25/2004 10:39 AM CDT from Last 3 Months or Most Recently Relevant to Health Maintenance Results * LAB TRACKING EVENT (01/20/2024 8:19 AM CDT) Other (Other) Client Collect / Unknown 01/20/2024 8:19 AM CDT 01/21/2024 6:19 AM CDT George Reid MD LAB [facility]ILL [facility] [address] [place] [address], * PATH TISSUE EXAM (01/20/2024 8:19 AM CDT) Case Report Pathology Report Case: [id number] Authorizing Provider: George Reid MD Collected: 01/20/2024 0819 Ordering Location: [facility] Received: 01/21/2024 0847 Pathologist: Meme Ramos DO Specimens: A) - Ascending Colon Polyp B) - Hepatic Flexure Polyp 01/24/2024 4:07 PM CAR UNLOADER HELPER [facility] Final Diagnosis A) COLON, ASCENDING, POLYPECTOMY: 1. Tubular adenoma 2. Negative for high grade dysplasia 3. Per the colonoscopy report: a. Polyp size: 4 mm b. Resection: Complete c. Retrieval: Complete B) COLON, HEPATIC FLEXURE, POLYPECTOMY: 1. Tubular adenoma 2. Negative for high grade dysplasia 3. Per the colonoscopy report: a. Polyp size: 3 mm b. Resection: Complete c. Retrieval: Complete 01/24/2024 4:07 PM CAR UNLOADER HELPER [facility] Clinical Information Ms. Blanco is a 63 y.o. who presents for colonoscopy examination. Multiple (2) polyps were identified. 01/24/2024 4:07 PM CAR UNLOADER HELPER [facility] Gross Description A) Received in formalin is a posadas mucosal fragment measuring 10 mm in greatest dimension, which is entirely submitted in one cassette. It is labeled with the patient's name and designated ascending colon, polyp. B) Received in formalin is a posadas mucosal fragment measuring 6 mm in greatest dimension, which is entirely submitted in one cassette. It is labeled with the patient's name and designated hepatic flexure, polyp. Carol Ben 01/21/2024 9:47 AM 01/24/2024 4:07 PM CAR UNLOADER HELPER [facility] Microscopic Description The final diagnosis is based on microscopic examination of appropriate sections of all specimens. 01/24/2024 4:07 PM CAR UNLOADER HELPER [facility] Additional Information Interpreted at [facility] - [address] [facility] [address] [address] 01/24/2024 4:07 PM [facility] Other (Ascending Colon Polyp) 01/20/2024 8:19 AM CDT 01/21/2024 8:47 AM CDT Specimen (specimen) (Hepatic Flexure Polyp) 01/20/2024 8:19 AM CDT 01/21/2024 8:47 AM CDT George Reid MD PATHOLOGY/CYTOLOGY [facility] [address] [place] [address], * SCAN-MAMMOGRAPHY REPORT (01/31/2016 12:00 AM CAR UNLOADER HELPER) Anatomical Region Laterality Modality Other Scanner OTHER * (ABNORMAL) LIPID PANEL W REFLEX MEASURED LDL (05/03/2015 2:05 PM CAR UNLOADER HELPER) CHOLESTEROL,TOTAL 224(H) 100 - 199 mg/dL 05/03/2015 7:30 PM CAR UNLOADER HELPER [facility] TRIGLYCERIDES 150(H) <150 mg/dL 05/03/2015 7:30 PM CAR UNLOADER HELPER [facility] HDL CHOLESTEROL 73 >40 mg/dL 05/03/2015 7:30 PM CAR UNLOADER HELPER [facility] NON-HDL CHOLESTEROL 151(H) <145 mg/dl 05/03/2015 7:30 PM CAR UNLOADER HELPER [facility] CHOL/HDL RATIO 3.07 <4.50 05/03/2015 7:30 PM CAR UNLOADER HELPER [facility] LDL CHOLESTEROL 121 <=130 mg/dL 05/03/2015 7:30 PM CAR UNLOADER HELPER [facility] PATIENT STATUS FASTING 05/03/2015 7:30 PM CAR UNLOADER HELPER [facility] Blood specimen (specimen) BLOOD SPECIMEN / Unknown Venipuncture / Unknown 05/03/2015 2:05 PM CAR UNLOADER HELPER 05/03/2015 2:05 PM CAR UNLOADER HELPER Camelia Muñoz MD CHEMISTRY [facility] [address] [place] [address], [place] * ANTI HCV [91082.2] (05/03/2015 2:05 PM CAR UNLOADER HELPER) HEPATITIS C ANTIBODY Non-Reacti ve Non-Reacti ve 05/03/2015 7:49 PM CAR UNLOADER HELPER [facility] Blood specimen (specimen) BLOOD SPECIMEN / Unknown Venipuncture / Unknown 05/03/2015 2:05 PM CAR UNLOADER HELPER 05/03/2015 2:05 PM CAR UNLOADER HELPER Narrative [facility] - 05/03/2015 7:49 PM CAR UNLOADER HELPER Antibodies to HCV not detected; does not exclude the possibility of exposure to HCV. Camelia Muñoz MD SEND OUTS [facility] [address] [place] [address], [place] * COLONOSCOPY SCREENING (08/25/2004 10:39 AM CDT) [...] 8:02 AM 09/22/2007 11:00 PM Care Teams Muffler Tender Relationship Specialty Start Date End Date Rosalind Snider PCP - General 06/19/16
--- OUTSIDE RECORDS SUMMARY | 2024-02-08 12:59 | XMS_ITS | Data Portability ---
Author Organization [place] [facility] Address [address] [address] Care Team Providers Care Perioperative Manager Name Role Phone TONA MOREIRA Referring Provider Assessment Encounter Date Assessment Date Assessment LastModified [...] By Organization Details Last Modified Time 08/22/2018 [id number] Self Care for TMD Not availab le 08/29/2018 10:25:44 oral appliance preparation* Not available 08/29/2018 10:25:43 Reason for Referral None Reported. Results Created Date Observation Date Name Description Value Unit Range Abnormal Flag Note LastModifiedBy Organization Detail LastModifiedTime 08/29/2018 oral appli ance prepa ratio n* Type of appliance mandib ular stabil izatio n applia nce Not Available Egan [address], [place], [address], 08/22/2018 10:00:24 08/23/19 19 XR, ortho panto gram No observ ation record ed. Not Available 08/22 10:34:24 Result Notes None recorded. 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 Procedures Surgical History Date Name Laterality Status Provider Name and Address Organization Details Recorded Time 09/07/19 19 [facility] 09/06/2018 16:43:32 [place] Teeth [facility] 08/22/2018 10:02:46 [facility] 08/22/2018 10:02:46 Primary Education Professor [facility] 08/22/2018 10:02:46 ENT/Sinus Surgery completed [facility] [...] Name and Address Organization Details Recorded Time 44568 mold extract environme nt Not available Not available Not available 08/22/2018 [id number] RxNorm Bob Hernández [facility] 9 10:02:07 Medications Not known to be on any medication Vitals Date Recorded Body height Body mass index (BMI) Body weight Heart rate Systolic blood pressure Diastolic blood pressure Provider Name and Address Organization Details Last Updated DateTime 9 162.56 cm 25.4 kg/m2 42127.6 7 g 72 /min 98 mm[Hg] 64 mm[Hg] Bob Hernández [facility] 9 10:03:27 Date Recorded Body height Provider Name an d Address Organization Details Last Updated DateTime 09/06/2018 162.56 cm Bob Hernández [facility] 09/06/2018 16:41:27 Date Recorded Body height Body mass index (BMI) Body weight Heart rate Systolic blood pressure Diastolic blood pressure Provider Name and Address Organization Details Last Updated DateTime 9 162.56 cm 25.4 kg/m2 17804.6 7 g 58 /min 119 mm[Hg] 71 mm[Hg] Manuel Reidrenee [facility] 9 11:35:06 Social History Question Answer Notes LastModified by Organizat ion Details LastModified Time Tobacco Smoking Status Never Smoker JACKSON Pedroza - [facility] 08/22/2018 10:02:40 [...] History Condition Response Coronary Artery Disease N Gout N Other N MRSA N Head Trauma/Injury N Depression N COPD N Lung Disease N Glaucoma N Pneumonia N Pacemaker N Obstructive Sleep [...] Anemia N Multiple Sclerosis N Heart Attack (MD) N Stomach Ulcers N Diabetes N Bleeding [...] virus, trivalent, preservative 12/20/2017 completed JACKSON Pedroza [facility] 08/22/2018 10:02:53 Past Encounters Encounter ID Performer Location Encounter Start Date Encounter Closed Date Diagnosis/Indication Diagnosis SNOMED-CT Code Diagnosis ICD10 Code [id number] PALOMA DUMONT BDS, [place] Jose rowell [address] [place] [id number] 08/22/2018 09:33:19 08/22/2018 11:25:23 Articular disc disorder of temporomandibular joint 11945692 M26.633 Myofascial pain 82419045 9 M79.11 Bilateral tinnitus 84969 72344 102 H93.13 Degenerati ve arthritis of temporomandibular joint 822519421 M13.88 [id number] PALOMA DUMONT BDS, [place] Jose rowell [address] [place] RowellJACKSON [id number] 09/06/2018 16:09:35 09/06/2018 17:03:26 Degenerative arthritis of temporomandibular joint 987802774 M13.88 Myofascial pain 94532137 9 M79.11 Bilateral tinnitus 62277 80131 102 H93.13 Articular disc disorder of temporomandibular joint 06020864 M26.633 [id number] Cheri Garcia lelia [address] [place] RowellJACKSON [id number] 10/11/2018 11:29:01 10/11/2018 12:05:07 Articular disc disorder of temporomandibular joint 43329462 M26.632 Bilateral tinnitus 32534 18807 102 H93.13 Myofascial pain 51739939 9 M79.11 Degenerati ve arthritis of temporomandibular joint 826270312 M13.88 Health Concerns Section Related Observation LastModified by Organization Detai ls LastModified Time None Recorded Concern Status LastModified by Organization Details LastModified Time None Recorded Advance Directives Directive None Recorded Payers Encounter Date Sequence Insurance Name Policy Number Policy Bateman Covered Member ID Bateman Member ID Guarantor Name 08/22/2018 1 [employer] [id number] Fredi Blanco [id number] Sharri Blanco 09/06/2018 1 [employer] [id number] Fredi Blanco [id number] Sharri Blanco 10/11/2018 1 [employer] [id number] Fredi Blanco [id number] Sharri Blanco Notes Date Note Type Note Provider Name and Address Organization Details Recorded Time 9 text/html general HPI for jaw, face, TMD painReported bypatient.Onset:starte d 30+ year(s) ago; clicking since she was young-now pain, for 6 months Location:right; preauricular Quality:dull; aching Severity:pain level 7/10 Durationintermittent weekly Symptom triggers:chews hard/crunchy/chewy foods; talking, she feels the joint rubbing Aggravating Factors:yawning; wide mouth opening Alleviating Factors:acetaminophen Associated Symptoms:jaw clicking right;headaches Prior Tests:panorex; June 2018 Prior opiniondentist Patient presents today for evaluation of a possible temporomandibular disorder. These symptoms are {{acute chronic*}} and began with {{ no clear triggering events* significant stress and tension}}. Previous consultation include {{ none evaluation with his/her primary care provider evaluation with his/her dentist* evaluation with both his/her dentist and primary care provider}}. Symptoms are {{right sided only* left sided only bilateral}} and aggravated by {{ no clear triggers jaw use and function* clenching and grinding of their teeth stress and tension}}. The patient is {{aware* not aware}} of teeth clenching and grinding at night. [...] lateral movements. MEGGAN DUMONT BDS, [place] [address] [address], [place], [address], [facility] 08/29/2018 10:26:41 9 text/html general HPI for jaw, face, TMD painReported bypatient.Onset:starte d 30+ year(s) ago; clicking since she was young-now pain, for 6 months Location:right; preauricular Quality:dull; aching Severity:pain level 3/10 Durationintermittent weekly Symptom triggers:chews hard/crunchy/chewy foods; talking, she feels the joint rubbing Aggravating Factors:yawning; wide mouth opening Alleviating Factors:acetaminophen Associated Symptoms:jaw clicking right;headaches Prior Tests:panorex; June 2018 Prior opiniondentist Patient presents today for insertion of a {{mandibular stabilization* maxilla ry stabilization repositi oning mandibular advancement}} oral appliance. They note {{no changes in improved* worsening }} symptoms which along with prior data was reviewed, updated and documented in the patient history of present illness. (S)he describes {{compliance* partial compliance non-complia nce}} with home self care as previously recommended. She has tried icing the TMJs. She is noticing noise with playing violin. MEGGAN DUMONT BDS, [place] [address] [facility] [address], [place], [address], [facility] 09/13/2018 08:35:58 9 text/html general HPI for jaw, face, TMD painReported bypatient.Onset:starte d 30+ year(s) ago; clicking since she was young-now pain, for 6 months Location:right; preauricular Quality:dull; aching Severity:pain level 3/10 Durationintermittent weekly Symptom triggers:chews hard/crunchy/chewy foods; talking, she feels the joint rubbing Aggravating Factors:yawning; wide mouth opening Alleviating Factors:acetaminophen Associated Symptoms:jaw clicking right;headaches Prior Tests:panorex; June 2018 Prior opiniondentist Patient presents today for follow-up. They report jaw symptoms which are {{improved worsened un changed* resolved}} since the previous visit. Symptoms and pertinent information along with prior data was reviewed, updated and documented in the patient history of present illness. Patient rates the pain intensity as {{0* 1 2 3 4 5 6 7 8 9 10}} on a scale of 0 to 10. Patient is {{engaged in* not engaged in partially engaged in completed discontin ued}} active treatment at this time.Sharri reports that she has not been wearing her splint because it is too tight on her anterior teeth. She has been using ice on her jaw every other day or so. She does not feel pain throughout the day. It's the noises in her jaw that bother her. Cheri alejandro, [facility] 10/11/2018 12:09:34 OBGyn Episode No OBEpisode recorded.
--- NOTE | 2024-02-08 13:20 | CRLHL7_ITS ---
For Patients: As a result of the Century Cures Act, medical imaging exams and procedure reports are released immediately into your electronic medical record. You may view this report before your referring provider. If you have questions, please contact your health care provider. BILATERAL SCREENING MAMMOGRAM WITH COMPUTER-AIDED DETECTION AND TOMOSYNTHESIS TECHNIQUE: CC and MLO views were obtained. These mammographic images have been obtained using full-field digital technique. These mammographic images were interpreted with the benefit of computer-aided detection. Breast Tomosynthesis was used in this interpretation. COMPARISON FILM: 01/27/23, 01/21/22, 07/06/19 (Diagnostic), 10/06/18. FINDINGS: There are scattered areas of fibroglandular density IMPRESSION: There is no radiographic evidence for malignancy. ASSESSMENT: BI-RADS Category 1: Negative RECOMMENDATION: Routine screening mammogram in 1 year. A lay language report of this examination will be provided to the patient. Leonel Stern M.D. Diagnostic Radiologist [email or web address] Transcribed: 2:18 p.abran hays/Dictated by: Leonel Stern MD @ 02/10/2024 10:59:00 AM (Electronically Signed)
== END 2024-02-08 12:57 | disposition home or self-care (01) ==
LOC: MAMMO 12:57
PROVIDERS: PCP Physician Assistant Medical; Visit Provider Physician Assistant Medical
DX: Z12.31 Encounter for screening mammogram for malignant neoplasm of breast (principal)
CPT/HCPCS: 77063; 77067

== ENCOUNTER 2024-07-17 15:24 | Outpatient (CLI) | payer BC, SELFPAY | END 2024-07-17 15:25 | disposition home or self-care (01) | PROVIDERS: PCP Physician Assistant Medical; Visit Provider Physician Assistant Medical | DX: R25.8 Other abnormal involuntary movements (principal); L50.9 Urticaria, unspecified; R49.0 Dysphonia | CPT/HCPCS: 80053; 82607; 83519; 84443; 86376 ==

== ENCOUNTER 2025-02-19 07:53 | Outpatient (CLI) | payer BC, SELFPAY | END 2025-02-19 07:54 | disposition home or self-care (01) | LOC: NFLDREF 02-23 06:08 | PROVIDERS: PCP Physician Assistant Medical; Referring Provider Physician Assistant Medical; Visit Provider Physician Assistant Medical | DX: Z00.00 Encounter for general adult medical examination without abnormal findings (principal); E55.9 Vitamin D deficiency, unspecified | CPT/HCPCS: 80061; 82306 ==